=== PATIENT | male | born 1965 | race Caucasian/White ===

== ENCOUNTER → 2016-08-20 | Outpatient (CLI) | payer BC ==
--- NOTE | 2016-08-20 19:37 | DIAGNOSTIC IMAGING REPORT ---
LEFT ANKLE MIN 3 VIEWS ROUTINE CLINICAL HISTORY: L ANKLE PAIN COMPARISON: None. DISCUSSION: The bones and joint spaces appear intact. There is no evidence of fracture, dislocation or bony disease. There is no evidence for soft tissue swelling. IMPRESSION: Negative study. The above report was generated using voice recognition software. It may contain grammatical, syntax or spelling errors. Electronically signed by: Alber Medina M.D. 08/20/2016 7:36 PM Dictated Date/Time: 08/20/2016 7:35 PM
== END | disposition home or self-care (01) ==
LOC: C.RAD 19:06
PROVIDERS: ATTEND Family Medicine
DX: M25.572 Pain in left ankle and joints of left foot (principal)

== ENCOUNTER → 2017-02-24 | Outpatient (CLI) | payer OTHER ==
--- NOTE | 2017-02-24 18:17 | DIAGNOSTIC IMAGING REPORT ---
RIGHT FOOT 3 VIEWS CLINICAL HISTORY: Right first toe pain. FINDINGS: 3 weightbearing views of the right foot are obtained. No prior studies are available for comparison at the time of dictation. The skeletal structures appear well mineralized. A high arch is noted. No acute fracture is identified. Postoperative change is present in the first metatarsal head. 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 The joint spaces of the foot are otherwise preserved. There is no radiographic evidence of Lisfranc injury. The overlying soft tissues are within normal limits. An os peroneum is incidentally noted. IMPRESSION: 1. No acute bony abnormality is seen in the right foot. 2. Postoperative change is present within the first metatarsal head with age advanced arthritic change at the first metatarsophalangeal joint. Electronically signed by: Brandt Starr M.D. 02/24/2017 6:16 PM Dictated Date/Time: 02/24/2017 6:14 PM
== END | disposition home or self-care (01) ==
LOC: C.RAD1850 16:20
PROVIDERS: ATTEND Family Medicine
DX: M79.674 Pain in right toe(s) (principal); Z98.890 Other specified postprocedural states